=== PATIENT | male | born 1945 | race Two or more races ===

== ENCOUNTER 2020-02-06 23:17 | Inpatient (IN) | payer OTHER ==
[~2020-02-06] VITALS: Ht 177.8 cm; Wt 79.4 kg
--- NOTE | 2020-02-06 23:32 | Emergency Room Report ---
History of Present Illness General Chief Complaint: Upper Respiratory Illness Source: Patient Present Illness HPI 74-year-old male presents ED for shortness of breath. Brought in by EMS from home. History of COPD. States that his oxygen machine stopped working yesterday and he is felt short of breath. Denies chest pain. Denies fevers or chills. States that he was tested for COVID last week and it was negative. Notes some leg swelling as well. No other aggravating relieving factors. Denies any other associated symptoms Allergies: Coded Allergies: No Known Allergies (Unverified , 02/06/20) COVID-19 Screening Contact w/high risk pt: No Experienced COVID-19 symptoms?: No COVID-19 Testing performed [employer]IOR [employer] ADMINISTRATOR: No Patient History Past Medical History: DM, COPD, other Past Surgical History: none Pertinent Family History: none Social History: Denies: smoking, alcohol use, drug use Immunizations: UTD Reviewed Nursing Documentation: PMH: Agreed; PSxH: Agreed Nursing Documentation-PMH Hx COPD: Yes Hx Diabetes: Yes Hx Gastrointestinal Problems: Yes - cirrhosis Review of Systems All Other Systems: negative except mentioned in HPI Physical Exam Vital Signs Date Time Temp Pulse Resp B/P (MAP) Pulse Ox O2 Delivery O2 Flow Rate FiO2 02/06/20 23:10 97.9 108 20 140/62 (88) 84 Room Air Sp02 EP Interpretation: reviewed, normal General Appearance: no apparent distress, alert, GCS 15, non-toxic Head: normocephalic, atraumatic Eyes: bilateral eye normal inspection, bilateral eye PERRL ENT: hearing grossly normal, normal pharynx, no angioedema, normal voice Neck: full range of motion, supple/symm/no masses Respiratory: chest non-tender, lungs clear, normal breath sounds, speaking full sentences Cardiovascular #1: regular rate, rhythm, no edema Cardiovascular #2: 2+ carotid (R), 2+ carotid (L), 2+ radial (R), 2+ radial (L) , 2+ dorsalis pedis (R), 2+ dorsalis pedis (L) Gastrointestinal: normal bowel sounds, non tender, soft, non-distended, no guarding, no rebound Rectal: deferred Genitourinary: normal inspection, no CVA tenderness Musculoskeletal: back normal, normal range of motion, gait/station normal, swelling - 1+ pitting edema Neurologic: alert, motor strength/tone normal, oriented x3, sensory intact, responsive, speech normal Psychiatric: judgement/insight normal, memory normal, mood/affect normal, no suicidal/homicidal ideation Reflexes: 3+ bicep (R), 3+ bicep (L), 3+ tricep (R), 3+ tricep (L), 3+ knee (R) , 3+ knee (L) Skin: other - see nursing notes Lymphatic: no adenopathy Medical Decision Making Diagnostic Impression: Primary Impression: COPD (chronic obstructive pulmonary disease) Qualified Codes: J44.9 - Chronic obstructive pulmonary disease, unspecified ER Course Hospital Course 74-year-old M presenting to ED with SOB. h/o COPD Differential diagnoses include: Pneumonia, CHF exacerbation, pneumothorax, fluid overload Clinical course Patient placed on stretcher. On hall monitor. After initial history and physical, I ordered oxygen. I ordered labs, IV fluids, EKG, chest x-ray, blood cultures, UA. Labs - no leukocytosis noted, hemoglobin/hematocrit stable, electrolytes okay, lactate okay, troponins negative d-dimer, CRP and ESR mildly elevated EKG - NSR, some PVCS noted, no acute ischemic changes interpreted by me CXR - hyperinflated lungs. no infiltrates abx given. Patient states he tested for COVID last week however mild bump in inflammatory markers. Given dexamethasone. Given Lovenox. COVID swab sent. Case discussed with Dr. Webster and he agreed to the patient to his service for further care and support I feel this is a highly complex case requiring extensive working including EKG/ Rhythm strip, Xray/CT/US, Blood/urine lab work, repeat exams while in ED, and administration of strong opiates/narcotics for pain control, admission to hospital or close patient follow up. Diagnosis - COPD Patient admitted to telemetry in serious condition Laboratory Tests Test 02/06/20 23:25 White Blood Count 6.1 K/UL (4.8-10.8) Red Blood Count 3.13 M/UL (4.70-6.10) L Hemoglobin 10.0 G/DL (14.2-18.0) L Hematocrit 30.3 % (42.0-52.0) L Mean Corpuscular Volume 97 FL (80-99) Mean Corpuscular Hemoglobin 32.0 PG (27.0-31.0) H Mean Corpuscular Hemoglobin Concent 33.1 G/DL (32.0-36.0) Red Cell Distribution Width 11.6 % (11.6-14.8) Platelet Count 172 K/UL (150-450) Mean Platelet Volume 6.6 FL (6.5-10.1) Neutrophils (%) (Auto) 73.1 % (45.0-75.0) Lymphocytes (%) (Auto) 14.0 % (20.0-45.0) L Monocytes (%) (Auto) 10.2 % (1.0-10.0) H Eosinophils (%) (Auto) 1.8 % (0.0-3.0) Basophils (%) (Auto) 1.0 % (0.0-2.0) Erythrocyte Sedimentation Rate 110 MM/HR (0-20) H Prothrombin Time 10.9 SEC (9.30-11.50) Prothromb Time International Ratio 1.0 (0.9-1.1) Activated Partial Thromboplast Time 31 SEC (23-33) D-Dimer 0.61 mg/L FEU (0.00-0.49) H Sodium Level 142 MMOL/L (136-145) Potassium Level 3.6 MMOL/L (3.5-5.1) Chloride Level 108 MMOL/L (98-107) H Carbon Dioxide Level 25 MMOL/L (21-32) Anion Gap 9 mmol/L (5-15) Blood Urea Nitrogen 10 mg/dL (7-18) Creatinine 1.4 MG/DL (0.55-1.30) H Estimat Glomerular Filtration Rate 49.8 mL/min (>60) Glucose Level 81 MG/DL (74-106) Lactic Acid Level 0.80 mmol/L (0.4-2.0) Calcium Level 8.9 MG/DL (8.5-10.1) Total Bilirubin 0.3 MG/DL (0.2-1.0) Aspartate Amino Transf (AST/SGOT) 24 U/L (15-37) Alanine Aminotransferase (ALT/SGPT) 27 U/L (12-78) Alkaline Phosphatase 54 U/L (46-116) Troponin I 0.000 ng/mL (0.000-0.056) C-Reactive Protein, Quantitative 16.4 mg/dL (0.00-0.90) H Pro-B-Type Natriuretic Peptide 283 pg/mL (0-125) H Total Protein 6.9 G/DL (6.4-8.2) Albumin 3.1 G/DL (3.4-5.0) L Globulin 3.8 g/dL Albumin/Globulin Ratio 0.8 (1.0-2.7) L EKG Diagnostic Results Rate: normal Rhythm: NSR ST Segments: no acute changes ASA given to the pt in ED: No Rhythm Strip Diag. Results EP Interpretation: yes Rhythm: NSR, no ectopy Chest X-Ray Diagnostic Results Chest X-Ray Diagnostic Results : Chest X-Ray Ordered: Yes # of Views/Limited/Complete: 1 View Indication: Shortness of Breath EP Interpretation: Yes Interpretation: no consolidation, no effusion, no pneumothorax, no acute cardiopulmonary disease Impression: No acute disease Electronically Signed by: Electronically signed by Alok Sue MD Last Vital Signs Date Time Temp Pulse Resp B/P (MAP) Pulse Ox O2 Delivery O2 Flow Rate FiO2 02/06/20 23:10 97.9 108 20 140/62 (88) 84 Room Air Status: improved Disposition: ADMITTED INPATIENT Condition: Serious Alok Sue MD Feb 06, 2020 23:32
[2020-02-06 23:35] VITALS: BP 140/62
[2020-02-06 23:42] LABS: EOSINOPHILS % (AUTO) 1.8 % (0.0-3.0); HEMATOCRIT 30.3 % (42.0-52.0); MEAN CORPUSCULAR VOLUME 97 FL (80-99); MONOCYTES % (AUTO) 10.2 % (1.0-10.0); NEUTROPHILS % (AUTO) 73.1 % (45.0-75.0); PLATELET COUNT 172 K/UL (150-450); RED BLOOD COUNT 3.13 M/UL (4.70-6.10); RED CELL DISTRIBUTION WIDTH 11.6 % (11.6-14.8); WHITE BLOOD COUNT 6.1 K/UL (4.8-10.8)
[2020-02-06 23:58] LABS: ANION GAP 9 mmol/L (5-15); BLOOD UREA NITROGEN 10 mg/dL (7-18); CALCIUM 8.9 MG/DL (8.5-10.1); CARBON DIOXIDE 25 MMOL/L (21-32); CHLORIDE 108 MMOL/L (98-107); CREATININE 1.4 MG/DL (0.55-1.30); POTASSIUM 3.6 MMOL/L (3.5-5.1); SODIUM 142 MMOL/L (136-145)
[2020-02-07] VITALS (7 sets, daily range): BP systolic 106–137; BP diastolic 66–87
[2020-02-07] MEDS ORDERED: Acetaminophen 500mg (ES) tab ORAL ONE
[2020-02-07] MEDS ORDERED: Morphine Sulfate 2mg/ml Inj(IV/IM USE ONLY) IVP ONE
[2020-02-07 00:09] LABS: ALANINE AMINOTRANSFERASE 27 U/L (12-78); ALBUMIN 3.1 G/DL (3.4-5.0); ALBUMIN/GLOBULIN RATIO 0.8 (1.0-2.7); ALKALINE PHOSPHATASE 54 U/L (46-116); ASPARTATE AMINO TRANSFERASE 24 U/L (15-37); BILIRUBIN,TOTAL 0.3 MG/DL (0.2-1.0)
[2020-02-07] MEDS ORDERED: Enoxaparin 60mg Inj SUBQ ONE (00:30)
[2020-02-07] MEDS ORDERED: dexAMETHasone 10mg/ml Inj IV ONE (00:30)
[2020-02-07] MEDS ORDERED: Morphine Sulfate 2mg/ml Inj(IV/IM USE ONLY) IVP PRN (01:30)
[2020-02-07 02:28] LABS: APPEARANCE,URINE CLEAR; BILIRUBIN, URINE NEGATIVE (NEGATIVE); COLOR,URINE PALE YELLOW; GLUCOSE, URINE (UA) NEGATIVE (NEGATIVE); KETONES,URINE NEGATIVE (NEGATIVE); LEUKOCYTE ESTERASE ,URINE NEGATIVE (NEGATIVE); NITRITE,URINE NEGATIVE (NEGATIVE); PH,URINE 6.5 (4.5-8.0); PROTEIN,URINE 2+ (NEGATIVE); UROBILINOGEN,URINE NORMAL MG/DL (0.0-1.0)
--- NOTE | 2020-02-07 10:09 | Diagnostic Imaging Report ---
Procedure: XRAY Chest 1v Reason for study: Reason For Exam: SOB Comparison films: None. FINDINGS: A single one view chest is obtained. Vascularity is normal. Mild densities noted in the lateral lung bases perhaps atelectasis. Cardiac and mediastinal silhouette are within normal limits. CP angles are sharp. The bony thorax appear unremarkable. IMPRESSION: Mild densities lateral lung bases perhaps atelectasis.
[2020-02-07] MEDS: cefTRIAXone 1 GM in D5W 55 ML IVPB SCH (11:00)
--- NOTE | 2020-02-07 14:00 | Consultation ---
DATE OF CONSULTATION: 02/07/2020 INFECTIOUS DISEASE CONSULTATION CONSULTING PHYSICIAN: Jeannine Licea MD. REFERRING PHYSICIAN: Khari Webster D.O. REASON FOR CONSULTATION: Pneumonia, to rule out COVID-19 pneumonia. HISTORY OF PRESENTING ILLNESS: This is a 74-year-old gentleman with history of diabetes, hypertension, and COPD, who comes in with shortness of breath along with cough. He denies any fevers. He states he was tested negative for COVID. An Infectious Diseases consultation has been obtained for pneumonia. PAST MEDICAL HISTORY: 1. History of diabetes. 2. Hypertension. 3. Chronic obstructive pulmonary disease. 4. Cirrhosis. SOCIAL HISTORY: He used to be a smoker. He does not smoke anymore. He drinks alcohol. No history of drug use. FAMILY HISTORY: Positive for cancer in his sister REVIEW OF SYSTEMS: RESPIRATORY: No fever. He has cough. He has shortness of breath. No chest pain. CARDIAC: No chest pain. No palpitation. No dizziness. No syncope. GASTROINTESTINAL: No nausea. No vomiting. No abdominal pain or diarrhea. MEDICATIONS: As an inpatient, he is on morphine, Zofran, Tylenol. He has received dexamethasone. ALLERGIES: No known drug allergies. PHYSICAL EXAMINATION: VITAL SIGNS: Temperature 98.1, T-max of 98.2, pulse 96, respiratory rate 20, blood pressure 106/69. O2 saturation of 96% on 2 liters of oxygen Examination deferred due to COVID-19 LABORATORY AND DIAGNOSTIC DATA: White count 6.1, hemoglobin 10 hematocrit 30.3, MCV 97, platelet count of 172,000. Neutrophils of 73%. ESR of 110. Sodium 142, potassium 3.6, chloride 108, bicarb 25, BUN 10, creatinine 1.4. Glucose 81. Calcium 8.9. Total bilirubin 0.3, AST 24, ALT 27, alkaline phosphatase 54. Troponin 0. C-reactive protein 16.4. Beta-natriuretic peptide 283. Total protein 6.9, albumin 3.1. UA showing zero white cells. Chest x-ray Mild densities lateral lung base, perhaps atelectasis. ASSESSMENT: 1. This is a 74-year-old gentleman with history of diabetes, hypertension, and COPD, who comes in with shortness of breath and cough. Would be concerned regarding COVID-19 pneumonia. 2. COPD. 3. Diabetes. PLAN: 1. Continue dexamethasone. 2. We will follow up COVID-19 results. 3. We will start the patient on ceftriaxone. 4. Continue isolation. 5. We will follow up cultures. I would like to thank Dr. Khari Webster for this consultation. Jeannine Licea M.D. DR: ISADORA JOB#: [id number] CC:
--- NOTE | 2020-02-07 16:15 | History and Physical Report ---
DATE OF ADMISSION: 02/07/2020 TIME SEEN: At 10 a.m. CONSULTANTS: 1. Isma Robb MD. 2. Jeannine Licea MD. CHIEF COMPLAINT: Shortness of breath. BRIEF HISTORY: This is a 74-year-old male, who presents to [facility] last night with history of increased shortness of breath. He uses oxygen, apparently ran out, came to the [facility], diagnosed with shortness of breath, COPD exacerbation, suspect COVID, and admitted to tele. Currently, O2 NC, slight short of breath, in bed. No complaint. REVIEW OF SYSTEMS: No chest pain. Slight short of breath. No nausea, vomiting, or diarrhea. PAST MEDICAL HISTORY: Includes COPD. PAST SURGICAL HISTORY: Unknown. MEDICATIONS: Include morphine, Zofran, Tylenol, levofloxacin, dexamethasone. ALLERGIES: Denies. SOCIAL HISTORY: Unable to obtain. The patient is sleepy. OBJECTIVE: GENERAL: Sleeping in bed, not talking much. O2 NC in place, slight short of breath. Lethargic, sleepy. VITAL SIGNS: Temperature is 98 degrees, pulse is 96, respirations 20, blood pressure 106/69. HEENT: Normocephalic and atraumatic. NECK: Trachea midline. CARDIOVASCULAR: No peripheral edema. LUNGS: Slight short of breath. ABDOMEN: No apparent wounds. EXTREMITIES: No cyanosis or clubbing. LABORATORY AND DIAGNOSTIC DATA: Labs at this time show hemoglobin and hematocrit 10/30, otherwise CBC is normal. Chloride 108, creatinine 1.4. Troponin 0.00. BNP is 283. Albumin 3.1. INR is 1.0. D-dimer is 0.61. Urinalysis show 2+ protein. ASSESSMENT: Shortness of breath, COPD, suspect COVID, malnutrition, anemia. PLAN: O2 and pulmonary treatment. Antibiotics per Infectious Disease p.r.n. Blood pressure and pain control. Dietary followup. Resume home medications. CBC and BMP in the morning. Khari Webster D.O. DR: ANA CRISTINA JOB#: [id number] CC:
--- NOTE | 2020-02-07 18:31 | Consultation ---
Consult Note Consult Note CONSULTING PHYSICIAN: Isma Robb MD. REFERRING PHYSICIAN: Khari Webster D.O. REASON FOR CONSULTATION: Pneumonia HISTORY OF PRESENTING ILLNESS: This is a 74-year-old male with history of diabetes, hypertension, and COPD, who comes in with shortness of breath along with cough. He denies any fevers. He states he was tested negative for COVID. He has been seen by ID and started on abx. PAST MEDICAL HISTORY: 1. History of diabetes. 2. Hypertension. 3. Chronic obstructive pulmonary disease. 4. Cirrhosis. SOCIAL HISTORY: He used to be a smoker. He does not smoke anymore. He drinks alcohol. No history of drug use. FAMILY HISTORY: Positive for cancer in his sister REVIEW OF SYSTEMS: RESPIRATORY: No fever. He has cough. He has shortness of breath. No chest pain. CARDIAC: No chest pain. No palpitation. No dizziness. No syncope. GASTROINTESTINAL: No nausea. No vomiting. No abdominal pain or diarrhea. MEDICATIONS: As an inpatient, he is on morphine, Zofran, Tylenol. He has received dexamethasone. ALLERGIES: No known drug allergies. PHYSICAL EXAMINATION: VITAL SIGNS: Temperature 98.1, T-max of 98.2, pulse 96, respiratory rate 20, blood pressure 106/69. O2 saturation of 96% on 2 liters of oxygen CHEST: CTA ABD: Soft, NT LABORATORY AND DIAGNOSTIC DATA: White count 6.1, hemoglobin 10 hematocrit 30.3, MCV 97, platelet count of 172,000. Neutrophils of 73%. ESR of 110. Sodium 142, potassium 3.6, chloride 108, bicarb 25, BUN 10, creatinine 1.4. Glucose 81. Calcium 8.9. Total bilirubin 0.3, AST 24, ALT 27, alkaline phosphatase 54. Troponin 0. C-reactive protein 16.4. Beta-natriuretic peptide 283. Total protein 6.9, albumin 3.1. UA showing zero white cells. Chest x-ray Mild densities lateral lung base, perhaps atelectasis. ASSESSMENT: 1. This is a 74-year-old male with history of diabetes, hypertension, and COPD, who comes in with shortness of breath and cough. Would be concerned regarding COVID-19 pneumonia. 2. COPD. 3. Diabetes. PLAN: 1. Continue dexamethasone. 2. Await COVID-19 results. 3.Continue ceftriaxone. 4. Continue isolation. 5. Ordered oxygen and pulmonary hygiene. MD Clarisse Cowart Omar Syed MD Feb 07, 2020 18:31
[2020-02-07] MEDS: Morphine Sulfate 2mg/ml Inj(IV/IM USE ONLY) IVP PRN (23:14)
[2020-02-08] VITALS: BP 105/67
[2020-02-08 04:00] VITALS: BP 108/68
[2020-02-08] MEDS: Morphine Sulfate 2mg/ml Inj(IV/IM USE ONLY) IVP PRN ×2 (04:04→17:33)
[2020-02-08 04:57] LABS: HEMATOCRIT 31.3 % (42.0-52.0); HEMOGLOBIN 10.1 G/DL (14.2-18.0); MEAN CORPUSCULAR VOLUME 98 FL (80-99); PLATELET COUNT 216 K/UL (150-450); RED CELL DISTRIBUTION WIDTH 11.3 % (11.6-14.8); WHITE BLOOD COUNT 7.6 K/UL (4.8-10.8)
[2020-02-08 05:05] LABS: ANION GAP 10 mmol/L (5-15); BLOOD UREA NITROGEN 14 mg/dL (7-18); CARBON DIOXIDE 25 MMOL/L (21-32); CHLORIDE 102 MMOL/L (98-107); POTASSIUM 4.2 MMOL/L (3.5-5.1); SODIUM 137 MMOL/L (136-145)
[2020-02-08 08:00] VITALS: BP 95/60
--- NOTE | 2020-02-08 08:12 | General Progress Note ---
Assessment/Plan Problem List: (1) SOB (shortness of breath) ICD Codes: R06.02 - Shortness of breath SNOMED: 669457719 (2) Anemia ICD Codes: D64.9 - Anemia, unspecified SNOMED: 307703206 (3) Malnutrition ICD Codes: E46 - Unspecified protein-calorie malnutrition SNOMED: 94323641 (4) COPD (chronic obstructive pulmonary disease) ICD Codes: J44.9 - Chronic obstructive pulmonary disease, unspecified SNOMED: 74863474 Qualifiers: Qualified Codes: J44.9 - Chronic obstructive pulmonary disease, unspecified Status: stable, progressing Assessment/Plan: o2 pulm tx abx cbc bmp am dc plan if clear Subjective Constitutional: Reports: weakness Allergies: Coded Allergies: No Known Allergies (Unverified , 02/06/20) All Systems: reviewed and negative except above Subjective o2nc sleepy Objective Last 24 Hour Vital Signs Date Time Temp Pulse Resp B/P (MAP) Pulse Ox O2 Delivery O2 Flow Rate FiO2 02/08/20 04:00 95 02/08/20 04:00 96.9 81 24 108/68 (81) 100 02/08/20 00:00 75 02/08/20 00:00 97.0 78 20 105/67 (80) 98 02/07/20 21:00 Nasal Cannula 4.0 02/07/20 20:00 89 02/07/20 20:00 97.0 98 20 137/87 (104) 99 02/07/20 16:00 97.7 89 18 110/70 (83) 96 02/07/20 16:00 87 02/07/20 12:00 97.9 89 18 114/74 (87) 97 02/07/20 12:00 84 02/07/20 08:14 Nasal Cannula 2.0 Intake and Output 02/07/20 02/08/20 19:00 07:00 Intake Total 360 ml 1900 ml Output Total 800 ml 2050 ml Balance -440 ml -150 ml Intake Oral 360 ml IV Total 900 ml Other 1000 ml Output Urine Total 800 ml 2050 ml Laboratory Tests 02/08/20 04:20: White Blood Count 7.6, Red Blood Count 3.20L, Hemoglobin 10.1L, Hematocrit 31.3L , Mean Corpuscular Volume 98, Mean Corpuscular Hemoglobin 31.6H, Mean Corpuscular Hemoglobin Concent 32.3, Red Cell Distribution Width 11.3L, Platelet Count 216, Mean Platelet Volume 6.5, Neutrophils (%) (Auto) , Lymphocytes (%) (Auto) , Monocytes (%) (Auto) , Eosinophils (%) (Auto) , Basophils (%) (Auto) , Sodium Level 137, Potassium Level 4.2, Chloride Level 102 , Carbon Dioxide Level 25, Anion Gap 10, Blood Urea Nitrogen 14, Creatinine 1.0 , Estimat Glomerular Filtration Rate > 60, Glucose Level 208#H, Calcium Level 9.0 Height (Feet): 5 Height (Inches): 10.00 Weight (Pounds): 175 General Appearance: lethargic EENT: normal ENT inspection Neck: normal alignment Cardiovascular: normal rate, regular rhythm Respiratory/Chest: no respiratory distress, no accessory muscle use Extremities: normal inspection Skin: normal pigmentation Khari Webster DO Feb 08, 2020 08:12
[2020-02-08] MEDS: Albuterol 90mcg Inhaler 8gm INH PRN (09:33)
[2020-02-08] MEDS: cefTRIAXone 1 GM in D5W 55 ML IVPB SCH (10:39)
--- NOTE | 2020-02-08 11:23 | Infectious Diseases Prog Note ---
Assessment/Plan Assessment/Plan antibiotics : ceftriaxone, dexamethasone A 1. pneumonia r/o COVID 19 on 4 liters o2, saturation 97 percent 2. diabetes mellitus 3. hypertension 4. COPD P 1. continue ceftriaxone, dexamethasone 2. will follow up cultures Subjective Respiratory: Reports: shortness of breath, dry cough Gastrointestinal/Abdominal: Denies: nausea, vomiting, diarrhea Musculoskeletal: Denies: pain Allergies: Coded Allergies: No Known Allergies (Unverified , 02/06/20) Objective Last 24 Hour Vital Signs Date Time Temp Pulse Resp B/P (MAP) Pulse Ox O2 Delivery O2 Flow Rate FiO2 02/08/20 08:14 Nasal Cannula 4.0 02/08/20 08:00 97.3 86 20 95/60 (72) 97 02/08/20 08:00 93 02/08/20 04:00 95 02/08/20 04:00 96.9 81 24 108/68 (81) 100 02/08/20 00:00 75 02/08/20 00:00 97.0 78 20 105/67 (80) 98 02/07/20 21:00 Nasal Cannula 4.0 02/07/20 20:00 89 02/07/20 20:00 97.0 98 20 137/87 (104) 99 02/07/20 16:00 97.7 89 18 110/70 (83) 96 02/07/20 16:00 87 02/07/20 12:00 97.9 89 18 114/74 (87) 97 02/07/20 12:00 84 Height (Feet): 5 Height (Inches): 10.00 Weight (Pounds): 175 Microbiology Date/Time Source Procedure Growth Status 02/06/20 23:25 Blood Blood Culture - Preliminary NO GROWTH AFTER 24 HOURS Resulted 02/06/20 23:10 Blood Blood Culture - Preliminary NO GROWTH AFTER 24 HOURS Resulted Laboratory Tests Test 02/08/20 04:20 White Blood Count 7.6 K/UL (4.8-10.8) Red Blood Count 3.20 M/UL (4.70-6.10) L Hemoglobin 10.1 G/DL (14.2-18.0) L Hematocrit 31.3 % (42.0-52.0) L Mean Corpuscular Volume 98 FL (80-99) Mean Corpuscular Hemoglobin 31.6 PG (27.0-31.0) H Mean Corpuscular Hemoglobin Concent 32.3 G/DL (32.0-36.0) Red Cell Distribution Width 11.3 % (11.6-14.8) L Platelet Count 216 K/UL (150-450) Mean Platelet Volume 6.5 FL (6.5-10.1) Neutrophils (%) (Auto) % (45.0-75.0) Lymphocytes (%) (Auto) % (20.0-45.0) Monocytes (%) (Auto) % (1.0-10.0) Eosinophils (%) (Auto) % (0.0-3.0) Basophils (%) (Auto) % (0.0-2.0) Sodium Level 137 MMOL/L (136-145) Potassium Level 4.2 MMOL/L (3.5-5.1) Chloride Level 102 MMOL/L (98-107) Carbon Dioxide Level 25 MMOL/L (21-32) Anion Gap 10 mmol/L (5-15) Blood Urea Nitrogen 14 mg/dL (7-18) Creatinine 1.0 MG/DL (0.55-1.30) Estimat Glomerular Filtration Rate > 60 mL/min (>60) Glucose Level 208 MG/DL (74-106) #H Calcium Level 9.0 MG/DL (8.5-10.1) Current Medications Medications (Trade) Dose Ordered Sig/[place] Route PRN Reason Start Time Stop Time Status Last Admin Dose Admin Acetaminophen (Tylenol) 650 mg Q6HR PRN ORAL TEMP>100.5 02/07/20 01:30 Albuterol Sulfate (Proventil MDI) 2 puff Q4H PRN INH Shortness of Breath 02/07/20 21:15 05/07/20 21:14 02/08/20 09:33 Ceftriaxone Sodium 1 gm/ Dextrose 55 ml @ 110 mls/hr Q24H IVPB 02/07/20 11:00 02/14/20 10:59 02/08/20 10:39 Dexamethasone (Decadron) 6 mg DAILY ORAL 02/07/20 10:52 02/15/20 09:01 02/08/20 09:07 Morphine Sulfate (Morphine Sulfate) 2 mg Q4H PRN IVP For Pain 02/07/20 23:00 02/14/20 22:59 02/08/20 04:04 Ondansetron HCl (Zofran) 4 mg Q6HR PRN IVP Nausea & Vomiting 02/07/20 01:30 Sodium Chloride 1,000 ml @ 100 mls/hr Q10H IV 02/07/20 00:30 03/08/20 00:29 02/08/20 06:14 Jeannine Licea MD Feb 08, 2020 11:23
[2020-02-08 12:00] VITALS: BP 109/73
[2020-02-08 16:00] VITALS: BP 119/72
--- NOTE | 2020-02-08 16:47 | Pulmonology Progress Note ---
Subjective Interval Events: Feeling better Constitutional: Reports: no symptoms HEENT: Repors: no symptoms Respiratory: Reports: dry cough, shortness of breath Cardiovascular: Reports: no symptoms Musculoskeletal: Denies: pain Allergies: Coded Allergies: No Known Allergies (Unverified , 02/06/20) All Systems: reviewed and negative except above Objective Last 24 Hour Vital Signs Date Time Temp Pulse Resp B/P (MAP) Pulse Ox O2 Delivery O2 Flow Rate FiO2 02/08/20 16:00 97.1 76 20 119/72 (88) 97 02/08/20 12:00 97.3 87 20 109/73 (85) 96 02/08/20 12:00 77 02/08/20 08:14 Nasal Cannula 4.0 02/08/20 08:00 97.3 86 20 95/60 (72) 97 02/08/20 08:00 93 02/08/20 04:00 95 02/08/20 04:00 96.9 81 24 108/68 (81) 100 02/08/20 00:00 75 02/08/20 00:00 97.0 78 20 105/67 (80) 98 02/07/20 21:00 Nasal Cannula 4.0 02/07/20 20:00 89 02/07/20 20:00 97.0 98 20 137/87 (104) 99 Intake and Output 02/07/20 02/08/20 19:00 07:00 Intake Total 360 ml 1900 ml Output Total 800 ml 2050 ml Balance -440 ml -150 ml Intake Oral 360 ml IV Total 900 ml Other 1000 ml Output Urine Total 800 ml 2050 ml General Appearance: no acute distress HEENT: normocephalic Respiratory: chest wall non-tender, lungs clear Cardiovascular: normal peripheral pulses Abdomen: normal bowel sounds Extremities: no cyanosis Microbiology Date/Time Source Procedure Growth Status 02/06/20 23:25 Blood Blood Culture - Preliminary NO GROWTH AFTER 24 HOURS Resulted 02/06/20 23:10 Blood Blood Culture - Preliminary NO GROWTH AFTER 24 HOURS Resulted 02/06/20 23:25 Nasopharynx Coronavirus COVID-19 PCR ([facility]) - Final Complete Laboratory Tests 02/08/20 04:20: White Blood Count 7.6, Red Blood Count 3.20L, Hemoglobin 10.1L, Hematocrit 31.3L , Mean Corpuscular Volume 98, Mean Corpuscular Hemoglobin 31.6H, Mean Corpuscular Hemoglobin Concent 32.3, Red Cell Distribution Width 11.3L, Platelet Count 216, Mean Platelet Volume 6.5, Neutrophils (%) (Auto) , Lymphocytes (%) (Auto) , Monocytes (%) (Auto) , Eosinophils (%) (Auto) , Basophils (%) (Auto) , Sodium Level 137, Potassium Level 4.2, Chloride Level 102 , Carbon Dioxide Level 25, Anion Gap 10, Blood Urea Nitrogen 14, Creatinine 1.0 , Estimat Glomerular Filtration Rate > 60, Glucose Level 208#H, Calcium Level 9.0 Current Medications Medications (Trade) Dose Ordered Sig/[place] Route PRN Reason Start Time Stop Time Status Last Admin Dose Admin Acetaminophen (Tylenol) 650 mg Q6HR PRN ORAL TEMP>100.5 02/07/20 01:30 Albuterol Sulfate (Proventil MDI) 2 puff Q4H PRN INH Shortness of Breath 02/07/20 21:15 05/07/20 21:14 02/08/20 09:33 Ceftriaxone Sodium 1 gm/ Dextrose 55 ml @ 110 mls/hr Q24H IVPB 02/07/20 11:00 02/14/20 10:59 02/08/20 10:39 Dexamethasone (Decadron) 6 mg DAILY ORAL 02/07/20 10:52 02/15/20 09:01 02/08/20 09:07 Dextrose (Dextrose 50%) 25 ml Q30M PRN IV Hypoglycemia 02/08/20 16:45 05/08/20 16:44 Dextrose (Dextrose 50%) 50 ml Q30M PRN IV Hypoglycemia 02/08/20 16:45 05/08/20 16:44 Insulin Aspart (NovoLOG) BEFORE MEALS AND HS SUBQ 02/08/20 21:00 05/08/20 20:59 Morphine Sulfate (Morphine Sulfate) 2 mg Q4H PRN IVP For Pain 02/07/20 23:00 02/14/20 22:59 02/08/20 04:04 Ondansetron HCl (Zofran) 4 mg Q6HR PRN IVP Nausea & Vomiting 02/07/20 01:30 Sodium Chloride 1,000 ml @ 100 mls/hr Q10H IV 02/07/20 00:30 03/08/20 00:29 02/08/20 06:14 Assessment/Plan Assessment/Plan ASSESSMENT: 1. This is a 74-year-old male with history of diabetes, hypertension, and COPD, who comes in with shortness of breath and cough. 2. COPD. 3. Diabetes. PLAN: 1. Continue dexamethasone. 2. Negative COVID-19 results. 3.Continue ceftriaxone. 4Ordered oxygen and pulmonary hygiene. MD Clarisse Cowart Omar Syed MD Feb 08, 2020 16:47
[2020-02-08] MEDS: Solu-MEDROL 40mg Inj IVP SCH (17:27)
[2020-02-08 20:00] VITALS: BP 113/75
[2020-02-08] MEDS: NovoLOG Insulin Flexpen SUBQ SCH (20:43)
[2020-02-09] VITALS: BP 115/65
[2020-02-09] MEDS: Solu-MEDROL 40mg Inj IVP SCH ×3 (00:15→11:23)
[2020-02-09] MEDS: Albuterol 90mcg Inhaler 8gm INH PRN (00:43)
[2020-02-09 04:00] VITALS: BP 120/71
--- NOTE | 2020-02-09 05:49 | Pulmonology Progress Note ---
Subjective Interval Events: Feeling better Constitutional: Reports: no symptoms HEENT: Repors: no symptoms Respiratory: Reports: dry cough, shortness of breath Cardiovascular: Reports: no symptoms Musculoskeletal: Denies: pain Allergies: Coded Allergies: No Known Allergies (Unverified , 02/06/20) All Systems: reviewed and negative except above Objective Last 24 Hour Vital Signs Date Time Temp Pulse Resp B/P (MAP) Pulse Ox O2 Delivery O2 Flow Rate FiO2 02/09/20 04:00 90 02/09/20 04:00 98.0 73 18 120/71 (87) 96 02/09/20 00:00 73 02/09/20 00:00 97.1 78 19 115/65 (82) 97 02/08/20 21:00 Nasal Cannula 4.0 02/08/20 20:00 97.7 89 18 113/75 (88) 98 02/08/20 20:00 90 02/08/20 16:00 104 02/08/20 16:00 97.1 76 20 119/72 (88) 97 02/08/20 12:00 97.3 87 20 109/73 (85) 96 02/08/20 12:00 77 02/08/20 08:14 Nasal Cannula 4.0 02/08/20 08:00 97.3 86 20 95/60 (72) 97 02/08/20 08:00 93 Intake and Output 02/08/20 02/09/20 18:59 06:59 Intake Total 1200 ml Balance 1200 ml Intake Oral 1200 ml # Voids 3 General Appearance: no acute distress HEENT: normocephalic Respiratory: chest wall non-tender, lungs clear Cardiovascular: normal peripheral pulses Abdomen: normal bowel sounds Extremities: no cyanosis Microbiology Date/Time Source Procedure Growth Status 02/06/20 23:25 Blood Blood Culture - Preliminary NO GROWTH AFTER 24 HOURS Resulted 02/06/20 23:10 Blood Blood Culture - Preliminary NO GROWTH AFTER 24 HOURS Resulted 02/06/20 23:25 Nasopharynx Coronavirus COVID-19 PCR ([facility]) - Final Complete Laboratory Tests 02/08/20 20:12: POC Whole Blood Glucose 287H Current Medications Medications (Trade) Dose Ordered Sig/[place] Route PRN Reason Start Time Stop Time Status Last Admin Dose Admin Acetaminophen (Tylenol) 650 mg Q6HR PRN ORAL TEMP>100.5 02/07/20 01:30 Albuterol Sulfate (Proventil MDI) 2 puff Q4H PRN INH Shortness of Breath 02/07/20 21:15 05/07/20 21:14 02/09/20 00:43 Ceftriaxone Sodium 1 gm/ Dextrose 55 ml @ 110 mls/hr Q24H IVPB 02/07/20 11:00 02/14/20 10:59 02/08/20 10:39 Dextrose (Dextrose 50%) 25 ml Q30M PRN IV Hypoglycemia 02/08/20 16:45 05/08/20 16:44 Dextrose (Dextrose 50%) 50 ml Q30M PRN IV Hypoglycemia 02/08/20 16:45 05/08/20 16:44 Insulin Aspart (NovoLOG) BEFORE MEALS AND HS SUBQ 02/08/20 21:00 05/08/20 20:59 02/08/20 20:43 Methylprednisolone Sodium Succinate (Solu-MEDROL) 40 mg EVERY 6 HOURS IVP 02/08/20 18:00 05/08/20 17:59 02/09/20 00:15 Morphine Sulfate (Morphine Sulfate) 2 mg Q4H PRN IVP For Pain 02/07/20 23:00 02/14/20 22:59 02/08/20 17:33 Ondansetron HCl (Zofran) 4 mg Q6HR PRN IVP Nausea & Vomiting 02/07/20 01:30 Sodium Chloride 1,000 ml @ 100 mls/hr Q10H IV 02/07/20 00:30 03/08/20 00:29 02/09/20 03:11 Assessment/Plan Assessment/Plan ASSESSMENT: 1. This is a 74-year-old male with history of diabetes, hypertension, and COPD, who comes in with shortness of breath and cough. 2. COPD. 3. Diabetes. PLAN: 1. Continue dexamethasone. 2. Negative COVID-19 results. 3.Continue ceftriaxone. 4Ordered oxygen and pulmonary hygiene. MD Clarisse Cowart Omar Syed MD Feb 09, 2020 05:49
[2020-02-09] MEDS: NovoLOG Insulin Flexpen SUBQ SCH ×2 (05:57→11:22)
[2020-02-09 06:21] LABS: HEMATOCRIT 30.6 % (42.0-52.0); HEMOGLOBIN 9.9 G/DL (14.2-18.0); MEAN CORPUSCULAR VOLUME 97 FL (80-99); PLATELET COUNT 228 K/UL (150-450); RED BLOOD COUNT 3.15 M/UL (4.70-6.10); RED CELL DISTRIBUTION WIDTH 11.5 % (11.6-14.8); WHITE BLOOD COUNT 9.1 K/UL (4.8-10.8)
--- NOTE | 2020-02-09 06:22 | General Progress Note ---
Assessment/Plan Status: stable, progressing Status Narrative (1) SOB (shortness of breath) ICD Codes: R06.02 - Shortness of breath SNOMED: 873638930 (2) Anemia ICD Codes: D64.9 - Anemia, unspecified SNOMED: 508064532 (3) Malnutrition ICD Codes: E46 - Unspecified protein-calorie malnutrition SNOMED: 72877052 (4) COPD (chronic obstructive pulmonary disease) ICD Codes: J44.9 - Chronic obstructive pulmonary disease, unspecified SNOMED: 97110282 --> pulm recs noted Subjective Constitutional: Denies: no symptoms, chills, diaphoresis, fever, malaise, weakness, other Cardiovascular: Denies: no symptoms, chest pain, edema, irregular heart rate, lightheadedness, palpitations, syncope, other Gastrointestinal/Abdominal: Denies: no symptoms, abdomen distended, abdominal pain, black stools, tarry stools, blood in stool, constipated, diarrhea, difficulty swallowing, nausea, poor appetite, poor fluid intake, rectal bleeding , vomiting, other Genitourinary: Denies: no symptoms, burning, discharge, frequency, flank pain, hematuria, incontinence, pain, urgency, other Neurologic/Psychiatric: Denies: no symptoms, anxiety, depressed, emotional problems, headache, numbness, paresthesia, pre-existing deficit, seizure, tingling, tremors, weakness, other Endocrine: Denies: no symptoms, excessive sweating, flushing, intolerance to cold, intolerance to heat, increased hunger, increased thirst, increased urine, unexplained weight gain, unexplained weight loss, other Hematologic/Lymphatic: Denies: no symptoms, anemia, easy bleeding, easy bruising, other Allergies: Coded Allergies: No Known Allergies (Unverified , 02/06/20) Subjective 02/08 no bleeding, no major events, no major changes, sob better Objective Last 24 Hour Vital Signs Date Time Temp Pulse Resp B/P (MAP) Pulse Ox O2 Delivery O2 Flow Rate FiO2 02/09/20 04:00 90 02/09/20 04:00 98.0 73 18 120/71 (87) 96 02/09/20 00:00 73 02/09/20 00:00 97.1 78 19 115/65 (82) 97 02/08/20 21:00 Nasal Cannula 4.0 02/08/20 20:00 97.7 89 18 113/75 (88) 98 02/08/20 20:00 90 02/08/20 16:00 104 02/08/20 16:00 97.1 76 20 119/72 (88) 97 02/08/20 12:00 97.3 87 20 109/73 (85) 96 02/08/20 12:00 77 02/08/20 08:14 Nasal Cannula 4.0 02/08/20 08:00 97.3 86 20 95/60 (72) 97 02/08/20 08:00 93 Intake and Output 02/08/20 02/09/20 19:00 07:00 Intake Total 1200 ml Balance 1200 ml Intake Oral 1200 ml # Voids 3 Laboratory Tests 02/08/20 20:12: POC Whole Blood Glucose 287H 02/09/20 06:00: White Blood Count [Pending], Red Blood Count [Pending], Hemoglobin [Pending], Hematocrit [Pending], Mean Corpuscular Volume [Pending], Mean Corpuscular Hemoglobin [Pending], Mean Corpuscular Hemoglobin Concent [Pending], Red Cell Distribution Width [Pending], Platelet Count [Pending], Mean Platelet Volume [ Pending], Neutrophils (%) (Auto) [Pending], Lymphocytes (%) (Auto) [Pending], Monocytes (%) (Auto) [Pending], Eosinophils (%) (Auto) [Pending], Basophils (%) (Auto) [Pending], Sodium Level [Pending], Potassium Level [Pending], Chloride Level [Pending], Carbon Dioxide Level [Pending], Blood Urea Nitrogen [Pending], Creatinine [Pending], Estimat Glomerular Filtration Rate [Pending], Glucose Level [Pending], Calcium Level [Pending] Height (Feet): 5 Height (Inches): 10.00 Weight (Pounds): 175 Objective General Appearance: lethargic EENT: normal ENT inspection Neck: normal alignment Cardiovascular: normal rate, regular rhythm Respiratory/Chest: no respiratory distress, no accessory muscle use Extremities: normal inspection Skin: normal pigmentation Navin Danielle MD Feb 09, 2020 06:22
[2020-02-09 06:38] LABS: ANION GAP 8 mmol/L (5-15); BLOOD UREA NITROGEN 15 mg/dL (7-18); CARBON DIOXIDE 25 MMOL/L (21-32); CHLORIDE 103 MMOL/L (98-107); CREATININE 1.2 MG/DL (0.55-1.30); POTASSIUM 4.3 MMOL/L (3.5-5.1); SODIUM 136 MMOL/L (136-145)
[2020-02-09 08:00] VITALS: BP 109/74
[2020-02-09] MEDS: Morphine Sulfate 2mg/ml Inj(IV/IM USE ONLY) IVP PRN (09:04)
--- NOTE | 2020-02-09 10:47 | Infectious Diseases Prog Note ---
Assessment/Plan Assessment/Plan A 1. pneumonia Negative COVID19 test 2. diabetes mellitus 3. hypertension 4. COPD P 1. continue ceftriaxone, dexamethasone 2. will follow up cultures Subjective ROS Limited/Unobtainable: No Constitutional: Reports: no symptoms Respiratory: Reports: productive cough; Denies: shortness of breath Cardiovascular: Reports: no symptoms Gastrointestinal/Abdominal: Reports: no symptoms Genitourinary: Reports: no symptoms Allergies: Coded Allergies: No Known Allergies (Unverified , 02/06/20) Objective Last 24 Hour Vital Signs Date Time Temp Pulse Resp B/P (MAP) Pulse Ox O2 Delivery O2 Flow Rate FiO2 02/09/20 08:00 96.4 80 18 109/74 (86) 96 02/09/20 08:00 101 02/09/20 04:00 90 02/09/20 04:00 98.0 73 18 120/71 (87) 96 02/09/20 00:00 73 02/09/20 00:00 97.1 78 19 115/65 (82) 97 02/08/20 21:00 Nasal Cannula 4.0 02/08/20 20:00 97.7 89 18 113/75 (88) 98 02/08/20 20:00 90 02/08/20 16:00 104 02/08/20 16:00 97.1 76 20 119/72 (88) 97 02/08/20 12:00 97.3 87 20 109/73 (85) 96 02/08/20 12:00 77 Height (Feet): 5 Height (Inches): 10.00 Weight (Pounds): 175 General Appearance: no acute distress HEENT: mucous membranes moist, other - poor dentitin Respiratory/Chest: lungs clear Cardiovascular: normal rate Abdomen: soft, non tender Extremities: other - trace legs edema Neurologic/Psychiatric: alert, oriented x 3, responsive Microbiology Date/Time Source Procedure Growth Status 02/06/20 23:25 Blood Blood Culture - Preliminary NO GROWTH AFTER 48 HOURS Resulted 02/06/20 23:10 Blood Blood Culture - Preliminary NO GROWTH AFTER 48 HOURS Resulted 02/06/20 23:25 Nasopharynx Coronavirus COVID-19 PCR ([facility]) - Final Complete Laboratory Tests Test 02/08/20 20:12 02/09/20 06:00 POC Whole Blood Glucose 287 MG/DL (74-106) H White Blood Count 9.1 K/UL (4.8-10.8) Red Blood Count 3.15 M/UL (4.70-6.10) L Hemoglobin 9.9 G/DL (14.2-18.0) L Hematocrit 30.6 % (42.0-52.0) L Mean Corpuscular Volume 97 FL (80-99) Mean Corpuscular Hemoglobin 31.4 PG (27.0-31.0) H Mean Corpuscular Hemoglobin Concent 32.3 G/DL (32.0-36.0) Red Cell Distribution Width 11.5 % (11.6-14.8) L Platelet Count 228 K/UL (150-450) Mean Platelet Volume 6.1 FL (6.5-10.1) L Neutrophils (%) (Auto) % (45.0-75.0) Lymphocytes (%) (Auto) % (20.0-45.0) Monocytes (%) (Auto) % (1.0-10.0) Eosinophils (%) (Auto) % (0.0-3.0) Basophils (%) (Auto) % (0.0-2.0) Differential Total Cells Counted 100 Neutrophils % (Manual) 93 % (45-75) H Lymphocytes % (Manual) 6 % (20-45) L Monocytes % (Manual) 1 % (1-10) Eosinophils % (Manual) 0 % (0-3) Basophils % (Manual) 0 % (0-2) Band Neutrophils 0 % (0-8) Platelet Estimate Adequate Platelet Morphology Normal Macrocytosis 1+ Sodium Level 136 MMOL/L (136-145) Potassium Level 4.3 MMOL/L (3.5-5.1) Chloride Level 103 MMOL/L (98-107) Carbon Dioxide Level 25 MMOL/L (21-32) Anion Gap 8 mmol/L (5-15) Blood Urea Nitrogen 15 mg/dL (7-18) Creatinine 1.2 MG/DL (0.55-1.30) Estimat Glomerular Filtration Rate 59.5 mL/min (>60) Glucose Level 250 MG/DL (74-106) H Calcium Level 9.0 MG/DL (8.5-10.1) Current Medications Medications (Trade) Dose Ordered Sig/[place] Route PRN Reason Start Time Stop Time Status Last Admin Dose Admin Acetaminophen (Tylenol) 650 mg Q6HR PRN ORAL TEMP>100.5 02/07/20 01:30 Albuterol Sulfate (Proventil MDI) 2 puff Q4H PRN INH Shortness of Breath 02/07/20 21:15 05/07/20 21:14 02/09/20 00:43 Ceftriaxone Sodium 1 gm/ Dextrose 55 ml @ 110 mls/hr Q24H IVPB 02/07/20 11:00 02/14/20 10:59 02/08/20 10:39 Dextrose (Dextrose 50%) 25 ml Q30M PRN IV Hypoglycemia 02/08/20 16:45 05/08/20 16:44 Dextrose (Dextrose 50%) 50 ml Q30M PRN IV Hypoglycemia 02/08/20 16:45 05/08/20 16:44 Insulin Aspart (NovoLOG) BEFORE MEALS AND HS SUBQ 02/08/20 21:00 05/08/20 20:59 02/09/20 05:57 Methylprednisolone Sodium Succinate (Solu-MEDROL) 40 mg EVERY 6 HOURS IVP 02/08/20 18:00 05/08/20 17:59 02/09/20 05:57 Morphine Sulfate (Morphine Sulfate) 2 mg Q4H PRN IVP For Pain 02/07/20 23:00 02/14/20 22:59 02/09/20 09:04 Ondansetron HCl (Zofran) 4 mg Q6HR PRN IVP Nausea & Vomiting 02/07/20 01:30 Sodium Chloride 1,000 ml @ 100 mls/hr Q10H IV 02/07/20 00:30 03/08/20 00:29 02/09/20 03:11 Osito Payton MD Feb 09, 2020 10:47
[2020-02-09] MEDS: cefTRIAXone 1 GM in D5W 55 ML IVPB SCH (11:05)
[2020-02-09 12:00] VITALS: BP 156/74
[2020-02-09] MEDS ORDERED: TYLENOL EXTRA500 MG ORAL (13:41)
[2020-02-09] MEDS ORDERED: NOVOLOG100 UNIT/4 SQ (13:42)
[2020-02-09] MEDS ORDERED: ALBUTEROL2.5 MG/3 M INH (13:42)
[2020-02-09] MEDS ORDERED: LEVAQUIN750 MG ORAL (13:58)
[2020-02-09 16:00] VITALS: BP 151/88
--- NOTE | 2020-02-11 14:54 | Discharge Summary ---
Discharge Summary Discharge Summary _ DATE OF ADMISSION: 02/07/2020 DATE OF DISCHARGE: 02/09/2020 DISCHARGED BY: Dr. Khari Webster CONSULTANTS: Dr. Isma Licea BRIEF HOSPITAL COURSE: Patient is a 74-year-old male, who presented to the ER due to increased shortness of breath. He was brought in by EMS from home. He has a history of COPD. He stated his oxygen machine stopped working and patient felt short of breath. He denied any chest pain. Denied fever chills he was tested a week prior for home with and was negative. He noted some swelling on the legs. There was no aggravating or relieving factors. Upon evaluation at ED, he was saturating 84% on room air. Blood work did not show any leukocytosis. Hemoglobin 10 and hematocrit 30. Platelet 172. Electrolytes were normal. Creatinine was elevated to 1.4. Lactic acid normal. CRP elevated to 16. D-dimer normal. Chest x-ray showed hyperinflated lungs without infiltrates. He had slight elevation in inflammatory markers. He was given Lovenox and dexamethasone. COVID swab was sent. He was then admitted to telemetry for further evaluation. He was given O2 support. He was started empirically on ceftriaxone. He was given steroids. Blood glucose was monitored and patient was placed on insulin sliding scale. COVID-19 was negative. O2 saturation improved. He was cleared for discharge home on O2. FINAL DIAGNOSES: Pneumonia with negative COVID test Diabetes mellitus Hypertension COPD Malnutrition Anemia DISPOSITION: Patient was discharged home. DISCHARGE MEDICATIONS: Refer to Discharge Medication List. DISCHARGE INSTRUCTIONS: Follow-up in a week. I have been assigned to complete a discharge summary on this account, I was not involved with the patient's management.--DONAVON Collazo Jacqueline Robles NP Feb 11, 2020 14:54
== END 2020-02-09 16:20 | disposition home health service (06) | DRG 194 ==
LOC: EDBD 23:17 → EMR 23:32 → 2E 02-07 00:53 → EDBEDREQ 02-07 01:27
DX: J18.9 Pneumonia, unspecified organism (principal); E46 Unspecified protein-calorie malnutrition; J44.9 Chronic obstructive pulmonary disease, unspecified; E11.9 Type 2 diabetes mellitus without complications; I10 Essential (primary) hypertension; D64.9 Anemia, unspecified; Z87.891 Personal history of nicotine dependence; Z20.828 Contact with and (suspected) exposure to other viral communicable diseases
CPT/HCPCS: 36415; 71045; 80048; 80053; 81003; 82962; 83036; 83605; 83880; 84484; 85007; 85025; 85379; 85610; 85651; 85730; 86140; 87040; 93005; 96365; 96372; 96375; 99285; J1815; J7030